=== PATIENT | female | born 1965 | race Caucasian/White ===

== ENCOUNTER 2016-07-17 21:21 | Emergency (ER) | payer MEDICARE, MEDICAID ==
[~2016-07-17] VITALS: Ht 170.2 cm; Wt 72.7 kg
[2016-07-17 21:34] VITALS: BP 141/94
[2016-07-17] MEDS ORDERED: LORazepam 1MG TABLET ONE (23:14)
[2016-07-17] MEDS ORDERED: LORazepam 1MG TABLET PO ONE (23:30)
== END 2016-07-18 00:02 | disposition home or self-care (01) ==
LOC: ED 23:54
DX: F11.10 Opioid abuse, uncomplicated (principal); F41.1 Generalized anxiety disorder
CPT/HCPCS: 99282